=== PATIENT | male | born 1995 | race Caucasian/White ===

== ENCOUNTER 2021-09-26 10:37 | Emergency (ER) | payer OTHER, SELFPAY ==
[2021-09-26 11:12] VITALS: BP 123/80; PULSE 86; RESP 16; TEMP 37; O2SAT 97
--- NOTE | 2021-09-26 11:37 | W.ED.GENAD ---
Discharge Plan Disposition Patient Disposition: HOME Condition: Stable Discharge Details Clinical Impression: Hip pain, left Primary Care Provider: Yovani Choe ED Provider: Wilfrid Li Home Meds and New Rx's Prescriptions: Continued citalopram 40 mg Tablet 40 mg PO DAILY RF: 0 ibuprofen [IBU-200] 200 mg Tablet 800 mg PO Q6H PRNRF: 0 Discharge Instructions Instructions: Hip Pain (ED) Additional Instructions: [id number]-iuo-[id number] Tylenol and/or Motrin as directed for discomfort. Gentle stretching as tolerated. Cool and/or warm compresses every 2 hours for 20 minutes. Use crutches as needed, advance activity as tolerated. Please watch for new or worsening symptoms and return to the ER for any concerns. Lastly, I do recommend reaching out to your orthopedic team with her today or tomorrow to discuss your ER visit need for outpatient reevaluation. Stand Alone Forms: Work Release Medical Decision Making 26-year-old male, history of left hip impingement surgery in July, presents to the ER for evaluation after [facility]uring his [facility] [employer] on Sunday. We discussed options, he feels as though this is likely muscular or soft tissue in nature and declines an x-ray. He has crutches at home that he can use. He needs a note stating that he was in the ER and cannot participate in the [employer] he plans to take [id number] Motrin and contact his orthopedic provider later today or tomorrow to discuss his ongoing symptoms. He understands that MRI is likely the study of choice here for further evaluation. He has no additional questions or concerns. Standard discharge and return precautions provided This documentation was generated using Oodriveation system, please disregard any oddities of phrase or misspellings. HPI General Mode of arrival: ambulatory. Date/Time Provider Initiated Documentation: 09/26/21 11:18. Limitations to Documentation: no limitations. Information obtained by: patient. HPI Narrative: This is a 26-year-old male, reports left hip impingement surgery back in June at [facility], presenting to the ER reporting left hip pain that began Sunday after training at the [employer]. Denies 1 distinct injury but reports squatting down, practicing takedowns, etc. and feels as though a combination of all of that causes pain. He has crutches at home. He has taken some [id number] anti-inflammatory medication. He denies any other injury, numbness, tingling, weakness. He reports the pain is moderate but worse with movement or bearing weight. Patient needs a note to state that he can not proceed with the [facility] Related Data Home Medications Medication Instructions Recorded Confirmed citalopram 40 mg PO DAILY 09/26/21 09/26/21 ibuprofen [IBU-200] 800 mg PO Q6H PRN 09/26/21 09/26/21 Allergies Allergy/AdvReac Type Severity Reaction Status Date / Time azithromycin Allergy Tachycardia Unverified 09/26/21 11:20 General Stated Complaint: Orthopedic SHAILESH: 4 Review of Systems Constitutional Constitutional: Denies fever(s) and Denies weakness Musculoskeletal Musculoskeletal: Denies deformity, Reports arthralgias, Denies numbness, Reports stiffness and Denies tingling Integumentary/Breasts Skin/Breast: Denies rash Neurologic Neurologic: Denies numbness, Denies tingling and Denies weakness PFSH All Active Problems (Updated 09/26/21 @ 12:08 by ANURADHA Gabriel) Hip pain, left (Acute) Social History Smoking/Tobacco Use Status: Never Smoking risk assessment performed?: Yes Alcohol Intake: current Alcohol Intake frequency: holidays/special occasions only Drug use: Occasionally Substance use type: marijuana Do you feel safe at home: Yes Do you feel safe in your relationship?: Yes Exam Const General: cooperative, healthy appearing, comfortable and no acute distress Orientation: alert and awake [facility] Head: normal to inspection, normocephalic and atraumatic Eyes General: appearance normal, both eyes and all related structures Conjunctivae: conjunctivae normal Neck Neck: normal visual inspection, trachea midline and supple Resp Effort & Inspection: normal respiratory effort and able to speak in complete sentences Cardio Rate: regular rate Rhythm: regular rhythm Back/Spine/Pelvis Back: No back tenderness Skin General skin exam: no rashes or lesions noted Neuro General: patient alert, patient awake, moves all extremities and no focal motor deficits Cognition: normal cognition Speech: speech normal Gait: antalgic Motor: muscle tone normal throughout and strength 5/5 throughout Sensory Exam: no sensory deficits noted Extrem General: normal to inspection and capillary refill normal Other: Left hip with diffuse anterior and lateral soft tissue discomfort. There are 3 well healed surgical incisions. There is no obvious swelling, deformity, erythema or ecchymosis. No deformity. Normal pedal pulse. Psych Appearance: grossly normal Mental Status: mental status grossly normal Course Vital Signs Vital signs: Vital Signs Temperature 37 C 09/26/21 11:12 Pulse 86 09/26/21 11:12 Respiratory Rate 16 09/26/21 11:12 Blood Pressure 123/80 09/26/21 11:12 Pulse Oximetry 97 09/26/21 11:12 Temperature 37 C 09/26/21 11:12 Temperature Source Temporal Artery Scan 09/26/21 11:12 Pulse 86 09/26/21 11:12 Respiratory Rate 16 09/26/21 11:12 Respiratory Effort Non-Labored 09/26/21 11:18 Blood Pressure 123/80 09/26/21 11:12 Pulse Oximetry 97 09/26/21 11:12 Oxygen Delivery Method Room Air 09/26/21 11:12 Oxygen Flow Rate 0 09/26/21 11:12 Pain Level 9 09/26/21 11:23
== END 2021-09-26 12:15 | disposition home or self-care (01) ==
PROVIDERS: Emergency Provider Physician Assistant; PCP Nurse Practitioner Acute Care
DX: M25.552 Pain in left hip (principal); Z98.890 Other specified postprocedural states
CPT/HCPCS: 99282